=== PATIENT | male | born 1955 | race Caucasian/White ===

== ENCOUNTER 2022-08-09 09:55 | Emergency (ER) | payer MEDICARE, BC | END 2022-08-09 12:34 | disposition home or self-care (01) | LOC: ERS 09:55 | DX: S92.412A Displaced fracture of proximal phalanx of left great toe, initial encounter for closed fracture (principal); W19.XXXA Unspecified fall, initial encounter ==

== ENCOUNTER 2024-01-16 06:14 | Inpatient (IN) | payer BC, MEDICARE, SELFPAY ==
[2024-01-16] MEDS ORDERED: Ipratropium/Albuterol 3 ML NEB ONE (06:36)
[2024-01-16] MEDS ORDERED: Albuterol 2.5 MG (3 mL) NEB ONE (06:36)
[2024-01-16] MEDS ORDERED: LevoFLOXacin 750 mg/D5W 150 ml Premix Bag ONE (06:37)
[2024-01-16] MEDS ORDERED: Dexamethasone 10 MG/ML VIAL ONE (06:37)
[2024-01-16] MEDS ORDERED: Magnesium 2 GM/50 ML BAG (IN WATER) ONE (06:37)
[2024-01-16 06:56] LABS: Analyzer IN Cardio ER; Base Excess (BEa) -6.5 mEq/L (-2.0 to +3.0); CO2 Tension 32.8 mmHg (35.0-45.0); Calcium, Ionized (arterial) 1.17 mmol/L (1.12-1.30); Carboxyhemoglobin (COHb) 3.1 gm% (0.0-3.0); Hematocrit-ABG 40 % (42.0-52.0); Hemoglobin (Hb) 13.7 g/dL (14.0-18.0); O2 Tension (PaO2), arterial 110.8 mmHg (> 80.0); Potassium - ABG Lab 3.42 mmol/L (3.70-5.30); pH, Arterial 7.357 (7.35-7.45)
[2024-01-16 06:58] LABS: #Basophils Less than 0.03 10x3/uL (0.0-0.2); %Basophils 0.3 % (0.0-1.0); %Eosinophils 1.8 % (0.0-10.0); %Lymphocytes 32.4 % (21.0-51.0); %Monocytes 7.7 % (0.0-10.0); %Neutrophils 57.4 % (42.0-75.0); Hematocrit 40.9 % (42.0-52.0); Hemoglobin 13.2 g/dL (14.0-18.0); Mean Corpuscular HGB CONC 32.3 g/dL (32.0-36.0); Mean Corpuscular Hemoglobin 31.2 pg (27.0-31.0); Mean Corpuscular Volume 96.7 fL (78.0-98.0); Mean Platelet Volume 10.6 fL (7.4-10.4); Platelet Count 161 10x3/uL (130-400); RBC Distribution Width 13.9 % (11.5-14.5); Red Blood Cell (RBC) Count 4.23 mill/uL (4.70-6.10)
[2024-01-16 06:58] LABS: Puncture Site Right Radial artery
[2024-01-16 07:30] LABS: ALT (SGPT) 32 U/L (8-55); AST (SGOT) 26 U/L (5-34); Albumin 3.3 g/dL (3.4-4.8); Alkaline Phosphatase 97 U/L (40-110); Anion Gap 15 mmol/L (10-20); BUN (Urea Nitrogen) 20 mg/dL (8.4-25.7); Bilirubin, Total 0.8 mg/dL (0.2-1.2); Calc. Creatinine Clearance 0 mL/min (70-130); Calcium 8.9 mg/dL (7.8-10.44); Carbon Dioxide 18 mmol/L (23-31); Chloride 110 mmol/L (98-107); Estimated GFR 96; Globulin 3.3 g/dL (2.4-3.5); Glucose 162 mg/dL (80-115); Potassium 3.5 mmol/L (3.5-5.1); Protein, Total 6.6 g/dL (5.8-8.1); Sodium 139 mmol/L (136-145)
[2024-01-16 07:47] LABS: Troponin I Less than 0.010 ng/mL (< 0.028)
[2024-01-16 07:57] LABS: Lipase 37 U/L (8-78)
[2024-01-16 08:51] LABS: Bacteria/HPF None Seen HPF (None Seen); Bilirubin Negative (Negative); Blood, Urine Negative (Negative); CAUTI Indications for Culture < 2yrs of age; Clarity Clear (Clear); Glucose, Urine (Dipstick) Normal (Negative); Ketone, Urine Negative (Negative); Leukocyte Negative Leu/uL (Negative); Nitrite Negative (Negative); Protein, Urine (Dipstick) 30 mg/dL (Neg-Trace); RBC/HPF None Seen HPF (0-3); Specific Gravity, Urine 1.009 (1.002-1.036); Squamous Epithelial None Seen HPF (0-3); Urobilinogen Normal mg/dL (Less than 2); WBC/HPF 0-3 HPF (0-3)
[2024-01-16 08:59] LABS: Urine Culture Reflex Yes Yes
[2024-01-16] MEDS ORDERED: hydrALAZINE 20 MG/ML VIAL SLOW IVP PRN (09:36)
[2024-01-16] MEDS ORDERED: Ondansetron ODT 4 MG TAB PO PRN (09:36)
[2024-01-16] MEDS ORDERED: Acetaminophen 325 MG TAB PO PRN (09:36)
[2024-01-16] MEDS ORDERED: Acetaminophen 650 MG Suppository PR PRN (09:36)
[2024-01-16] MEDS ORDERED: Ondansetron PF 4 MG/2 ML Vial IVP PRN (09:36)
[2024-01-16] MEDS ORDERED: Dextrose 50% Abboject 50 ML SYRINGE SLOW IVP PRN (09:42)
[2024-01-16] MEDS ORDERED: Insulin Lispro 100 UNIT/ML 10 ML VIAL SC PRN (09:42)
[2024-01-16] MEDS ORDERED: Dextrose 5% in Water 1,000 ML IV PRN (09:42)
[2024-01-16] MEDS ORDERED: Glucagon 1 MG/ML KIT IM PRN (09:42)
[2024-01-16] MEDS ORDERED: Electrolyte Replacement Protocol 1 EACH FS SCH (09:45)
[2024-01-16] MEDS ORDERED: Iopamidol 370 76% 100 ML VIAL ONE (09:52)
[2024-01-16 10:24] VITALS: BMI 30.9
[2024-01-16 10:29] LABS: Hemoglobin A1c 5.9 % (4.0-6.0)
[2024-01-16] MEDS: Potassium Chloride 20 MEQ TAB PO SCH (11:31)
[2024-01-16] MEDS: Furosemide 40 MG (4 mL) VIAL SLOW IVP SCH (11:31)
[2024-01-16] MEDS: Insulin Lispro 100 UNIT/ML 10 ML VIAL SC PRN (16:10)
[2024-01-16 19:05] LABS: Lactic Acid 3.03 mmol/L (0.5-2.2)
[2024-01-17 09:45] LABS: Anion Gap 12 mmol/L (10-20); BUN (Urea Nitrogen) 19 mg/dL (8.4-25.7); Calc. Creatinine Clearance 110 mL/min (70-130); Carbon Dioxide 20 mmol/L (23-31); Chloride 110 mmol/L (98-107); Estimated GFR 97; Glucose 152 mg/dL (80-115); Sodium 138 mmol/L (136-145)
[2024-01-17 09:46] LABS: #Basophils Less than 0.03 10x3/uL (0.0-0.2); #Eosinphils Less than 0.03 10x3/uL (0.0-0.7); %Basophils 0.2 % (0.0-1.0); %Eosinophils 0.2 % (0.0-10.0); %Lymphocytes 17.7 % (21.0-51.0); %Monocytes 8.4 % (0.0-10.0); %Neutrophils 73.1 % (42.0-75.0); Hematocrit 38.7 % (42.0-52.0); Hemoglobin 12.4 g/dL (14.0-18.0); Mean Corpuscular Hemoglobin 31.3 pg (27.0-31.0); Mean Corpuscular Volume 97.7 fL (78.0-98.0); Mean Platelet Volume 10.3 fL (7.4-10.4); Platelet Count 186 10x3/uL (130-400); RBC Distribution Width 13.8 % (11.5-14.5); Red Blood Cell (RBC) Count 3.96 mill/uL (4.70-6.10)
[2024-01-18] MEDS: Enoxaparin 40 MG (0.4 mL) SYRINGE SC SCH (08:50)
[2024-01-18] MEDS: Aspirin 81 mg Enteric Coated Tablet PO SCH (17:27)
[2024-01-18] MEDS: Carvedilol 3.125 MG TAB PO SCH (17:27)
[2024-01-19 04:12] LABS: Cardiac Risk 4.4 (Less than 4.5)
[2024-01-19] MEDS: Aspirin 81 mg Enteric Coated Tablet PO SCH (09:24)
[2024-01-19] MEDS: Furosemide 20 MG (2 mL) VIAL SLOW IVP SCH ×2 (13:10→15:24)
[2024-01-19] MEDS ORDERED: Communication Order-Pharmacy FS SCH (15:45)
[2024-01-19] MEDS: Sacubitril 24MG/Valsartan 26 MG TAB PO SCH (20:56)
[2024-01-19] MEDS: Atorvastatin Calcium 40 MG TAB PO SCH (20:56)
[2024-01-20 04:40] LABS: Hematocrit 41.9 % (42.0-52.0); Hemoglobin 14.4 g/dL (14.0-18.0); Mean Corpuscular HGB CONC 34.4 g/dL (32.0-36.0); Mean Corpuscular Hemoglobin 30.9 pg (27.0-31.0); Mean Corpuscular Volume 89.9 fL (78.0-98.0); Mean Platelet Volume 10.4 fL (7.4-10.4); Platelet Count 201 10x3/uL (130-400); RBC Distribution Width 13.2 % (11.5-14.5); Red Blood Cell (RBC) Count 4.66 mill/uL (4.70-6.10)
[2024-01-20 04:45] LABS: Lactic Acid 0.85 mmol/L (0.5-2.2)
[2024-01-20 04:52] LABS: Anion Gap 12 mmol/L (10-20); BUN (Urea Nitrogen) 19 mg/dL (8.4-25.7); Calc. Creatinine Clearance 106 mL/min (70-130); Calcium 9.2 mg/dL (7.8-10.44); Carbon Dioxide 20 mmol/L (23-31); Chloride 108 mmol/L (98-107); Estimated GFR 98; Glucose 123 mg/dL (80-115); Potassium 3.9 mmol/L (3.5-5.1); Sodium 136 mmol/L (136-145)
[2024-01-20] MEDS: Sodium Chloride 0.9% 1,000 ML IV SCH ×3 (06:04→21:21)
[2024-01-20] MEDS ORDERED: Heparin 10,000 UNITS/ 10 ML VIAL ONE (07:02)
[2024-01-20] MEDS ORDERED: Nitroglycerin 50 MG/250 ML BOT 0 ML ONE (07:03)
[2024-01-20] MEDS ORDERED: fentaNYL 50 mcg/mL 1 mL Vial ONE (08:29)
[2024-01-20] MEDS ORDERED: Midazolam HCl 2 mg/2 ml Vial ONE (08:29)
[2024-01-20] MEDS ORDERED: Protamine Sulfate 50 MG/5 ML VIAL ONE (08:57)
[2024-01-20] MEDS ORDERED: Acetaminophen/Codeine 30-300mg Tablet PO PRN ×2 (09:11)
[2024-01-20] MEDS ORDERED: Sodium Chloride 0.9% 200 ML IV PRN (09:11)
[2024-01-20] MEDS ORDERED: Nitroglycerin 0.4 MG TAB (25 Tab Bottle) SL PRN (09:11)
[2024-01-20] MEDS: Empagliflozin 10 MG TAB PO SCH (09:59)
[2024-01-20] MEDS: Isosorbide Mononitrate 30 MG ER.TAB PO SCH ×2 (09:59→10:00)
[2024-01-21 06:15] LABS: Anion Gap 12 mmol/L (10-20); BUN (Urea Nitrogen) 19 mg/dL (8.4-25.7); Calc. Creatinine Clearance 104 mL/min (70-130); Calcium 8.3 mg/dL (7.8-10.44); Carbon Dioxide 19 mmol/L (23-31); Chloride 112 mmol/L (98-107); Estimated GFR 96; Glucose 100 mg/dL (80-115); Potassium 3.7 mmol/L (3.5-5.1); Sodium 139 mmol/L (136-145)
[2024-01-21] MEDS: Dapagliflozin Propanediol 10 MG TAB PO SCH (09:21)
[2024-01-21] MEDS: Furosemide 40 MG TAB PO SCH (09:21)
[2024-01-21] MEDS: Sacubitril 24MG/Valsartan 26 MG TAB PO SCH (20:26)
[2024-01-21 22:08] VITALS: BP 126/63; TEMP 97.7
== END 2024-01-21 22:45 | disposition home or self-care (01) | DRG 286 ==
LOC: ERS 06:14 → T4-B 09:32 → 2NO 20:37
PROVIDERS: ADMIT Student in an Organized Health Care Education/Training Program; ATTEND Internal Medicine
PROC: 4A033R1 Measurement of Arterial Saturation, Peripheral, Percutaneous Approach (ICD-10-PCS; 2024-01-16)
PROC: 4A023N7 Measurement of Cardiac Sampling and Pressure, Left Heart, Percutaneous Approach (ICD-10-PCS; principal; 2024-01-20)
PROC: B2111ZZ Fluoroscopy of Multiple Coronary Arteries using Low Osmolar Contrast (ICD-10-PCS; 2024-01-20)
PROC: B2151ZZ Fluoroscopy of Left Heart using Low Osmolar Contrast (ICD-10-PCS; 2024-01-20)
DX: I11.0 Hypertensive heart disease with heart failure (principal); I50.41 Acute combined systolic (congestive) and diastolic (congestive) heart failure; J18.9 Pneumonia, unspecified organism; E87.20 Acidosis, unspecified; I42.9 Cardiomyopathy, unspecified; Z88.0 Allergy status to penicillin; E11.9 Type 2 diabetes mellitus without complications; Z79.4 Long term (current) use of insulin; E78.00 Pure hypercholesterolemia, unspecified; I25.10 Atherosclerotic heart disease of native coronary artery without angina pectoris
CPT/HCPCS: 36415; 36416; 36600; 71045; 71275; 80048; 80053; 80061; 81001; 82805; 83036; 83605; 83690; 83735; 83880; 84484; 85025; 85027; 85379; 87040; 87086; 93005; 93306; 93458; 94644; 94760; 96361; 96365; 96367; 96375; 99152; C1769; J1100; J1644; J1650; J1815; J1940; J1956; J2250; J2720; J3010; J3475; J7030; J7611; J7620; Q9967

== ENCOUNTER 2024-04-29 07:41 | Emergency (ER) | payer MEDICARE, OTHER ==
[2024-04-29 09:11] LABS: #Basophils Less than 0.03 10x3/uL (0.0-0.2); %Basophils 0.2 % (0.0-1.0); %Eosinophils 0.4 % (0.0-10.0); %Lymphocytes 26.7 % (21.0-51.0); %Monocytes 6.2 % (0.0-10.0); Hemoglobin 14.6 g/dL (14.0-18.0); Mean Corpuscular HGB CONC 35.6 g/dL (32.0-36.0); Mean Corpuscular Hemoglobin 30.9 pg (27.0-31.0); Mean Corpuscular Volume 86.7 fL (78.0-98.0); Mean Platelet Volume 10.2 fL (7.4-10.4); Platelet Count 186 10x3/uL (130-400); RBC Distribution Width 12.8 % (11.5-14.5); Red Blood Cell (RBC) Count 4.73 mill/uL (4.70-6.10)
[2024-04-29 09:35] LABS: ALT (SGPT) 58 U/L (8-55); AST (SGOT) 34 U/L (5-34); Albumin 3.9 g/dL (3.4-4.8); Alkaline Phosphatase 105 U/L (40-110); Anion Gap 17 mmol/L (10-20); BUN (Urea Nitrogen) 25 mg/dL (8.4-25.7); Bilirubin, Total 1.7 mg/dL (0.2-1.2); Calc. Creatinine Clearance 0 mL/min (70-130); Carbon Dioxide 17 mmol/L (23-31); Chloride 103 mmol/L (98-107); Estimated GFR 95; Globulin 3.4 g/dL (2.4-3.5); Glucose 167 mg/dL (80-115); Magnesium 2.3 mg/dL (1.6-2.6); Potassium 4.2 mmol/L (3.5-5.1); Protein, Total 7.3 g/dL (5.8-8.1); Sodium 133 mmol/L (136-145)
[2024-04-29 09:40] LABS: Troponin I 0.019 ng/mL (< 0.028)
== END 2024-04-29 10:43 | disposition home or self-care (01) ==
LOC: ERS 07:41
DX: S09.90XA Unspecified injury of head, initial encounter (principal); S00.81XA Abrasion of other part of head, initial encounter; I10 Essential (primary) hypertension; E11.9 Type 2 diabetes mellitus without complications; Z83.52 Family history of ear disorders; W18.2XXA Fall in (into) shower or empty bathtub, initial encounter
CPT/HCPCS: 70450; 72125; 80053; 83735; 84484; 85025; 93005; 96360